=== PATIENT | female | born 1980 | race Caucasian/White ===

== ENCOUNTER 2017-03-18 17:12 | Inpatient (IN) | payer OTHER ==
[2017-03-18] MEDS ORDERED: ONDANSETRON 4 MG/2 ML VIAL IVP ONE (17:47)
[2017-03-18] MEDS ORDERED: NS 1,000 ML IV ONE ×2 (17:47→19:30)
--- NOTE | 2017-03-18 17:52 | EDPHY ---
H & P Stated Complaint: r sided abd pain n/v no stool in a few days Time Seen by Provider: 03/18/17 17:27 HPI/ROS: CHIEF COMPLAINT: Abdominal pain HISTORY OF PRESENT ILLNESS: Patient is a 37-year-old female who comes to the emergency department her dad complaining of diffuse abdominal pain as well as distension. She states she has not had a bowel movement in 2 days has not had any flatus in 24 hours. She has a history of 2 C sections. No other operative history. She has not had a fever. She did vomit once. She does have some right-sided pain as well but no back pain. REVIEW OF SYSTEMS: Constitutional: denies: chills, fever, recent illness, recent injury EENTM: denies: blurred vision, double vision, nose congestion Respiratory: denies: cough, shortness of breath Cardiac: denies: chest pain, irregular heart rate, lightheadedness, palpitations Gastrointestinal/Abdominal: See HPI Genitourinary: denies: dysuria, frequency, hematuria, pain Musculoskeletal: denies: joint pain, muscle pain Skin: denies: lesions, rash, jaundice, bruising Neurological: denies: headache, numbness, paresthesia, tingling, dizziness, weakness Hematologic/Lymphatic: denies: blood clots, easy bleeding, easy bruising Immunologic/allergic: denies: HIV/AIDS, transplant EXAM: GENERAL: Well-appearing, well-nourished and in no acute distress. HEAD: Atraumatic, normocephalic. EYES: Pupils equal round and reactive to light, extraocular movements intact, sclera anicteric, conjunctiva are normal. ENT: TMs normal, nares patent, oropharynx clear without exudates. Moist mucous membranes. NECK: Normal range of motion, supple without lymphadenopathy or JVD. LUNGS: Breath sounds clear to auscultation bilaterally and equal. No wheezes rales or rhonchi. HEART: Regular rate and rhythm without murmurs, rubs or gallops. ABDOMEN: Diffuse pain, no tenderness, distended BACK: No CVA tenderness, no spinal tenderness, step-offs or deformities EXTREMITIES: Normal range of motion, no pitting or edema. No clubbing or cyanosis. NEUROLOGICAL: Cranial nerves II through XII grossly intact. Normal speech, normal gait. 5/5 strength, normal movement in all extremities, normal sensation PSYCH: Normal mood, normal affect. SKIN: Warm, dry, normal turgor, no visible rashes or lesions. Source: Patient Exam Limitations: No limitations - Personal History LMP (Females 10-55): Now Current Tetanus/Diphtheria Vaccine: Yes - Medical/Surgical History Hx Asthma: No Hx Chronic Respiratory Disease: No Hx Diabetes: No Hx Cardiac Disease: No Hx Renal Disease: No Hx Cirrhosis: No Hx Alcoholism: No Hx HIV/AIDS: No Hx Splenectomy or Spleen Trauma: No Other PMH: denies - Family History Significant Family History: No pertinent family hx - Social History Smoking Status: Never smoked Alcohol Use: Heavy Drug Use: None Constitutional: Initial Vital Signs Temperature (C) 36.9 C 03/18/17 17:19 Heart Rate 114 H 03/18/17 17:19 Respiratory Rate 20 03/18/17 17:19 Blood Pressure 131/95 H 03/18/17 17:19 O2 Sat (%) 94 03/18/17 17:19 O2 Delivery Mode Room Air Allergies/Adverse Reactions: latex [Latex] Allergy (Verified 03/18/17 17:19) Penicillins Allergy (Verified 03/18/17 17:19) Home Medications: Medication Instructions Recorded NK [No Known Home Meds] 03/18/17 Medical Decision Making - Diagnostics EKG Interpretation: An EKG obtained and was read and documented in trace view. Please see trace view for full reading and report. Sinus tachycardia, no acute ischemic changes , nonspecific T-wave abnormality Imaging Results: Imaging Impressions Abdomen CT 03/18/17 17:50 Impression: 1. Peripancreatic stranding and fluid consistent with pancreatitis without visible pseudocyst or necrosis. 2. Enlarged fatty liver. 3. Gallbladder distention. 4. Diverticulosis 5. Additional findings as above. Findings discussed with Cali Berman on 03/18/2017 at 1904 hours. Procedures: On bedside ultrasound the patient's gallbladder was easily visualized. No wall thickening or visible stones. The exam was limited by common bile duct is not being completely visualized. ED Course/Re-evaluation: 7:20 p[address]. we discussed the CT results. Patient agrees to admission. She declines further pain or nausea medication at this point. She is anxious and tachycardic after receiving the news. She is also having mild withdrawal. She states that she has never had pancreatitis before. She does drink daily and had a lot to drink yesterday at a family constitution party. Will admit to the hospital service. Differential Diagnosis: Partial list of the Differential diagnosis considered include but were not limited to; pancreatitis, bowel obstruction, biliary disease, hepatitis and although unlikely based on the history and physical exam, I also considered , appendicitis, volvulus, acute coronary disease. Critical Care Time: Critical care time spent by me, Dr. Berman exclusive with this patient was 35 minutes, exclusive of the PA time exclusive of procedures. The organ system that was at risk was GI and I gave IV fluids, pain medication consultation and admission to prevent worsening of the patient's condition - Data Points Laboratory Results: Laboratory Results 03/18/17 17:30 03/18/17 17:30 03/18/17 17:30 Phosphorus 2.8 mg/dL mg/dL (2.5-4.5) Medications Given: Discontinued Medications Chlordiazepoxide HCl (Librium) 50 mg PO ONCE ONE Stop: 03/18/17 20:46 Last Admin: 03/18/17 20:45 Dose: 50 mg Hydromorphone HCl (Dilaudid) 1 mg IVP EDNOW ONE Stop: 03/18/17 17:48 Last Admin: 03/18/17 18:42 Dose: 1 mg Hydromorphone HCl (Dilaudid) 0.2 - 0.4 mg IVP Q2HRS PRN PRN Reason: Pain, Severe Unable to Take PO Stop: 03/28/17 19:37 Last Admin: 03/18/17 23:32 Dose: 0.4 mg Sodium Chloride (Ns) 1,000 mls @ 0 mls/hr IV ONCE ONE PRN Reason: Wide Open Stop: 03/18/17 17:48 Last Admin: 03/18/17 18:11 Dose: 1,000 mls Sodium Chloride (Ns) 1,000 mls @ 0 mls/hr IV ONCE ONE PRN Reason: Wide Open Stop: 03/18/17 19:31 Last Admin: 03/18/17 19:30 Dose: 1,000 mls Magnesium Sulfate (Magnesium Sulf 2 Gm (Premix)) 50 mls @ 50 mls/hr IV ONCE ONE Stop: 03/19/17 07:12 Last Admin: 03/19/17 06:37 Dose: 50 mls Lorazepam (Ativan Injection) 2 mg IVP ONCE ONE Stop: 03/18/17 19:41 Last Admin: 03/18/17 20:09 Dose: 2 mg Ondansetron HCl (Zofran) 4 mg IVP EDNOW ONE Stop: 03/18/17 17:48 Last Admin: 03/18/17 18:10 Dose: 4 mg Departure - Departure Disposition: [facility] Acute Clinical Impression: Pancreatitis Qualifiers: Chronicity: acute Pancreatitis type: alcohol induced Acute pancreatitis complication: unspecified Qualified Code(s): K85.20 - Alcohol induced acute pancreatitis without necrosis or infection Condition: Fair
[2017-03-18 18:08] LABS: % IMMATURE GRANULYOCYTES 0.4 % (0.0-1.1); ABSOLUTE IMMATURE GRANULOCYTES 0.05 10^3/uL (0.00-0.10); ADD DIFF? NO; ADD MORPH? NO; ADD SCAN? NO; ATYPICAL LYMPHOCYTE FLAG 0 (0-99); FRAGMENT RBC FLAG 0 (0-99); HEMATOCRIT 48.3 % (38.0-47.0); HEMOGLOBIN 17.2 g/dL (12.6-16.3); LEFT SHIFT FLG 0 (0-99); LIPEMIA HEMOLYSIS FLAG 90 (0-99); MEAN CELL HEMOGLOBIN 38.1 pg (27.9-34.1); MEAN CELL HEMOGLOBIN CONCENTR. 35.6 g/dL (32.4-36.7); MEAN CELL VOLUME 107.1 fL (81.5-99.8); MEAN PLATELET VOLUME 9.2 fL (8.7-11.7); PLATELET CLUMPS FLAG 0 (0-99); PLATELET COUNT 140 10^3/uL (150-400); RED BLOOD CELL COUNT 4.51 10^6/uL (4.18-5.33); RED CELL DISTRIBUTION WIDTH 12.3 % (11.5-15.2)
[2017-03-18] MEDS: HYDROmorphONE/DILAUDID 1 MG/ML SYR IVP ONE ×2 (18:14→18:42)
[2017-03-18] MEDS ORDERED: HYDROmorphONE/DILAUDID 1 MG/ML SYR ONE (18:17)
[2017-03-18] MEDS ORDERED: IOPAMIDOL (ISOVUE-300) 100 ML BTL ONE (18:19)
[2017-03-18 18:20] LABS: ALANINE AMINOTRANSFERASE 67 IU/L (9-52); ALBUMIN 4.8 g/dL (3.5-5.0); ALKALINE PHOSPHATASE 125 IU/L (38-126); ANION GAP 18 mEq/L (8-16); ASPARTATE AMINOTRANSFERASE 203 IU/L (14-46); BILIRUBIN-CONJUGATED 0.8 mg/dL (0.0-0.5); BILIRUBIN-UNCONJUGATED 1.2 mg/dL (0.0-1.1); CALCIUM 7.9 mg/dL (8.5-10.4); CARBON DIOXIDE 16 mEq/l (22-31); CHLORIDE 106 mEq/L (97-110); CREATININE 0.5 mg/dL (0.6-1.0); GLOMERULAR FILTRATION RATE > 60; GLUCOSE 129 mg/dL (70-100); POTASSIUM 3.7 mEq/L (3.5-5.2); SODIUM 140 mEq/L (134-144); TOTAL PROTEIN 8.1 g/dL (6.3-8.2)
--- NOTE | 2017-03-18 18:38 | CPEKG ---
Heart Rate: 106 RR Interval: 566 P-R Interval: 156 QRSD Interval: 96 QT Interval: 364 QTC Interval: 484 P Aurora: 58 QRS Aurora: -11 T Wave Aurora: 49 EKG Severity - BORDERLINE ECG - EKG Impression: SINUS TACHYCARDIA EKG Impression: PROBABLE LEFT ATRIAL ABNORMALITY EKG Impression: BORDERLINE T ABNORMALITIES, ANT-LAT LEADS Electronically Signed By: Cali Berman 18-Mar-2017 18:42:20
[2017-03-18] MEDS ORDERED: ACETAMINOPHEN 650 MG SUPP PR PRN (19:38)
[2017-03-18] MEDS ORDERED: ONDANSETRON 4 MG/2 ML VIAL IVP PRN (19:38)
[2017-03-18] MEDS ORDERED: LORazepam 2 MG/ML INJ IVP ONE (19:40)
[2017-03-18] MEDS ORDERED: NS 1,000 ML IV SCH (19:45)
[2017-03-18] MEDS ORDERED: chlordiazePOXIDE 25 MG CAP ONE (20:42)
[2017-03-18] MEDS ORDERED: chlordiazePOXIDE 25 MG CAP PO ONE (20:45)
[2017-03-18] MEDS: HYDROmorphONE/DILAUDID 1 MG/ML SYR IVP PRN ×2 (21:31→23:32)
[2017-03-18] MEDS: THIAMINE HCL 500 MG in NS 100 ML IV SCH (21:35)
--- NOTE | 2017-03-18 21:52 | GHP ---
[f rep st] HISTORY AND PHYSICAL DATE OF ADMISSION: 03/18/2017 CHIEF COMPLAINT: Abdominal pain. HISTORY OF PRESENT ILLNESS: A 37-year-old female who presents with severe epigastric abdominal pain that she describes as beginning approximately 24 hours prior to presentation. Reports that it loca lizes above her umbilicus, and then radiates to her right upper quadrant. She intermittently had th e pain, and then it became so severe that she presented to the emergency department. She had associ ated nausea with 1 episode of emesis that she describes as nonbloody. Denies any coffee-grounds. D enies any preceding history of abdominal discomfort like this. Denies any shortness of breath. Den ies chest pain, headache, vision changes, dysphagia, myalgias, arthralgias, or rashes. Patient repo rts very heavy consistent alcohol use for the past 6-7 years. She cannot recall a day she was away from alcohol. Reports tremors that begin in the morning and get progressively worse through the cou rse of the day. If she does not have any child related activities, will begin drinking approximatel y 3 in the afternoon. If she does, then she will drink after, but drinks consistently 3-4 drinks wi th 3-4 shots of alcohol in each of them a night. PAST MEDICAL HISTORY: Alcohol abuse. Patient reports drinking consistently 7-10 ounces of alcohol at night. SOCIAL HISTORY: Alcohol use as above. Denies tobacco, illicit drugs, or marijuana. FAMILY HISTORY: Positive for alcoholism in her father and several other family members. The patien t has 2 children who are 10 and 12. 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 REVIEW OF SYSTEMS: A 10-point review of systems is negative with the exception of that reported in the HPI. PHYSICAL EXAMINATION: VITAL SIGNS: Blood pressure 131/95, heart rate 135, respiratory rate 18, sat urating 94% on room air, 36.9. GENERAL: This is a young appearing female in mild distress. HEENT: Notable for dry mucous membranes. Eye exam is negative for any icterus. CARDIAC: Patient is tac hycardic, but regular. PULMONARY: She is clear to auscultation bilaterally. GASTROINTESTINAL: Po sitive bowel sounds. Abdomen is obese, but soft. She is tender to palpation in the epigastrium and right upper quadrants with voluntary guarding. No rebound. MUSCULOSKELETAL: Negative for any low er extremity edema. SKIN: Negative for any rashes. NEUROLOGIC: The patient is tremulous on my ex am, has tongue fasciculations, is alert and oriented x3. PSYCHIATRIC: She is pleasant and fearful on my examination. LABORATORY DATA: White count is 14, hematocrit 48.3, platelet count of 140, creatinine 0.5, anion g ap of 18, bicarb of 16, AST 203, ALT 67, total bilirubin of 2, lipase of 6625, beta HCG negative. C T of the abdomen, which I personally reviewed and interpreted shows an enlarged fatty liver, peripan creatic stranding, gallbladder distention. ASSESSMENT AND PLAN: This is a 37-year-old female presenting with abdominal pain. 1. Acute pancreatitis suspect alcohol related. Will rule out cholelithiasis with ultrasound tomorr ow. Will admit, make n.p.o., treat with IV fluids and IV pain medications. Patient has an elevated white count at presentation. Will need to monitor closely. 2. Acute alcohol withdrawal. Patient is tremulous, tachycardic, has tongue fasciculations and has extensive daily alcohol intake. I believe she has already begun withdrawing from alcohol. Will maurice at with Librium now and scheduled t.i.d., as well as CIWA protocol with IV Ativan. Will admit the p atient to the stepdown unit as her risk for developing severe alcohol withdrawal is high. 3. Alcohol abuse. The patient has expressed interest in alcohol cessation. After this hospitaliza tion can ask Case Management to loop into the conversation when she is medically more stable. Will add a phosphorus to her admission labs as her risk for hypophosphatemia is high. Will add IV vitami ns to her treatment regimen. 4. Metabolic acidosis. I suspect this is likely starvation ketosis with alcohol abuse and poor p.o . intake with her pancreatitis. Will aggressively fluid resuscitate and recheck in the morning. 5. Leukocytosis. Suspect this may be either a stress response or secondary to her pancreatitis. W ill follow closely. 6. Alcohol related hepatitis. Will add Coag's for calculation of discriminant function in the morn ing, although I suspect she will not qualify for steroid treatment. 7. Prophylaxis with Lovenox. 8. Diet n.p.o. 9. Disposition. Expecting greater than 2 midnights as the patient is presenting with acute alcohol withdrawal and pancreatitis requiring close monitoring and care. She is high risk for deterioratio n. I have discussed the case with the emergency room physician. Patient will be triaged to the [facility] pdown unit, as we suspect she will likely need Precedex if her withdrawal worsens. /[id number]/MODL
[2017-03-18] MEDS: chlordiazePOXIDE 25 MG CAP PO SCH (22:13)
[2017-03-19] MEDS: LORazepam 2 MG/ML INJ IVP PRN ×6 (00:23→22:37)
[2017-03-19] MEDS ORDERED: NALOXONE HCL 0.4 MG/ML INJ IVP PRN (00:25)
[2017-03-19 00:42] LABS: COLOR YELLOW; LEUKOCYTE ESTERASE,URINE NEGATIVE (NEGATIVE); MUCUS TRACE /lpf (NONE-1+); NITRITE,URINE NEGATIVE (NEGATIVE)
[2017-03-19] MEDS: HYDROmorphONE/DILAUDID 6 MG/30 ML PCA IV PRN ×2 (00:53→19:19)
[2017-03-19 05:10] LABS: % IMMATURE GRANULYOCYTES 0.4 % (0.0-1.1); ABSOLUTE IMMATURE GRANULOCYTES 0.04 10^3/uL (0.00-0.10); ADD DIFF? NO; ADD MORPH? NO; ADD SCAN? NO; ATYPICAL LYMPHOCYTE FLAG 10 (0-99); FRAGMENT RBC FLAG 0 (0-99); HEMATOCRIT 43.6 % (38.0-47.0); HEMOGLOBIN 15.2 g/dL (12.6-16.3); LEFT SHIFT FLG 0 (0-99); LIPEMIA HEMOLYSIS FLAG 90 (0-99); MEAN CELL HEMOGLOBIN CONCENTR. 34.9 g/dL (32.4-36.7); MEAN PLATELET VOLUME 9.3 fL (8.7-11.7); PLATELET CLUMPS FLAG 0 (0-99); PLATELET COUNT 86 10^3/uL (150-400); RED CELL DISTRIBUTION WIDTH 12.3 % (11.5-15.2)
[2017-03-19 05:23] LABS: ANION GAP 10 mEq/L (8-16); CARBON DIOXIDE 19 mEq/l (22-31); CHLORIDE 112 mEq/L (97-110); CREATININE 0.5 mg/dL (0.6-1.0); GLOMERULAR FILTRATION RATE > 60; GLUCOSE 98 mg/dL (70-100); MAGNESIUM 1.1 mg/dL (1.6-2.3); POTASSIUM 3.7 mEq/L (3.5-5.2); SODIUM 141 mEq/L (134-144)
[2017-03-19 05:41] LABS: CALCIUM 5.8 mg/dL (8.5-10.4)
[2017-03-19] MEDS ORDERED: PROTOCOL MAGNESIUM 1 DOSE IV PRN (06:00)
[2017-03-19] MEDS ORDERED: PROTOCOL CALCIUM 1 DOSE IV PRN ×2 (06:00→06:02)
[2017-03-19] MEDS ORDERED: MAGNESIUM SULF 2 GM/WATER 50 ML IV ONE (06:13)
[2017-03-19] MEDS: chlordiazePOXIDE 25 MG CAP PO SCH ×3 (08:03→21:26)
[2017-03-19] MEDS: THIAMINE HCL 500 MG in NS 100 ML IV SCH (08:03)
[2017-03-19] MEDS ORDERED: CALCIUM GLUCONATE 2 GM in NS 50 ML IV ONE (08:47)
[2017-03-19] MEDS: ENOXAPARIN 40 MG/0.4 ML SYR SC SCH (10:20)
[2017-03-19] MEDS: FAMOTIDINE 20 MG/NACL 50 ML IV SCH ×2 (10:59→21:26)
[2017-03-19] MEDS: D5W 1/2 NS W/ 20 KCl/L 1,000 ML IV SCH ×2 (11:01→20:07)
[2017-03-19] MEDS ORDERED: IOTHALAMATE MEG (CONRAY) 50 ML VIAL IV ONE (12:12)
[2017-03-19] MEDS ORDERED: GLUCAGON,HUMAN RECOMBINANT 1 MG VIAL ONE (12:12)
[2017-03-19] MEDS ORDERED: PROPOFOL 200 MG/20 ML VIAL ONE (13:18)
[2017-03-19] MEDS ORDERED: ROCURONIUM 50 MG/5 ML VIAL ONE (13:18)
[2017-03-19] MEDS ORDERED: LIDOCAINE 2% 5 ML SDV ONE (13:18)
[2017-03-19] MEDS ORDERED: fentaNYL 100 MCG/2 ML INJ ONE (13:18)
[2017-03-19] MEDS ORDERED: MIDAZOLAM 2 MG/2 ML VIAL ONE (13:20)
[2017-03-19] MEDS ORDERED: DEXAMETHASONE 4 MG/ML VIAL ONE (13:43)
[2017-03-19] MEDS ORDERED: SUGAMMADEX SODIUM 200 MG/2 ML VIAL IVP ONE (13:48)
--- NOTE | 2017-03-19 14:05 | SOAPPROG ---
[facility] Progress Note Assessment/Plan: Assessment:ERCP with sphincterotomy performed for suspected choledocholithiasis and dilated CBD along wit pancreatitis. CBD was ~8mm, no debris or filling defects seen. Plan:Unclear why such discordance between imaging and my procedure. Would treat as alcoholic pancreatitis. 03/19/17 14:03 Objective: Vital Signs Temp Pulse Resp BP Pulse Ox 37.0 C 112 H 25 H 120/74 95 03/19/17 11:37 03/19/17 11:37 03/19/17 11:37 03/19/17 11:37 03/19/17 11:37 Laboratory Results 03/19/17 04:55 03/19/17 04:55 03/18/17 03/19/17 03/20/17 05:59 05:59 05:59 Intake Total 2960 Output Total 600 Balance 2360 ICD10 Worksheet Patient Problems: Problems Problem Status Onset Pancreatitis Acute
--- NOTE | 2017-03-19 14:49 | GPN ---
[f rep st] PROCEDURE NOTE PROCEDURE PERFORMED: ERCP with sphincterotomy. INDICATION: The patient is a 37-year-old female who was admitted with pancreatitis, felt most likel y due to alcohol abuse. However, imaging revealed a common bile duct of 22 mm and possible choledoc holithiasis. Of note, no gallstones were seen in the gallbladder. ERCP was requested to clear the common bile duct, as she may have gallstone pancreatitis. PROCEDURE: After proper consent was obtained, patient placed in the swimmer's position, put under g eneral anesthesia. Video duodenoscope was introduced through the mouth, down the esophagus, through the stomach, past the pylorus, into the duodenum. These structures were grossly normal. Ampulla of Vater was identified, appeared atraumatic. Using guidewire technique, I was able to cannulate the common bile duct and then opacify it. The du ct was dilated, but only to 9 mm. No obvious filling defects were noted. A small sphincterotomy, approximately 10 mm, was performed. Using Seldinger technique, I switched over to a 9-12 mm balloon extractor and performed multiple swe eps of the common duct with no evidence of any debris removed. Final cholangiogram showed no filling defects. At this point, instrument was removed. Patient tolerated procedure well and was returned to recover y room in stable condition. IMPRESSION: 1. No evidence for choledocholithiasis. While the common bile duct is dilated, it is not as much a s what was seen on the ultrasound. It is unclear why this discordance exists. The ultrasound was d one only 7 hours prior and there was no evidence that she passed a stone, as far as the ampulla look ing atraumatic. 2. Alcoholic pancreatitis. RECOMMENDATIONS: The patient will be treated for pancreatitis, as per the hospitalist team. I will be available should there be any other followup required. /[id number]/MODL
[2017-03-19 15:48] LABS: % IMMATURE GRANULYOCYTES 0.8 % (0.0-1.1); ADD DIFF? NO; ADD MORPH? NO; ADD SCAN? NO; ATYPICAL LYMPHOCYTE FLAG 0 (0-99); FRAGMENT RBC FLAG 0 (0-99); HEMATOCRIT 48.4 % (38.0-47.0); HEMOGLOBIN 16.9 g/dL (12.6-16.3); LEFT SHIFT FLG 90 (0-99); LIPEMIA HEMOLYSIS FLAG 90 (0-99); MEAN CELL HEMOGLOBIN 38.4 pg (27.9-34.1); MEAN CELL HEMOGLOBIN CONCENTR. 34.9 g/dL (32.4-36.7); MEAN PLATELET VOLUME 9.4 fL (8.7-11.7); PLATELET CLUMPS FLAG 0 (0-99); PLATELET COUNT 91 10^3/uL (150-400); RED CELL DISTRIBUTION WIDTH 12.6 % (11.5-15.2)
[2017-03-19 16:14] LABS: ALANINE AMINOTRANSFERASE 42 IU/L (9-52); ALBUMIN 3.7 g/dL (3.5-5.0); ALKALINE PHOSPHATASE 86 IU/L (38-126); ANION GAP 9 mEq/L (8-16); ASPARTATE AMINOTRANSFERASE 103 IU/L (14-46); BILIRUBIN,TOTAL 3.8 mg/dL (0.1-1.4); CALCIUM 6.1 mg/dL (8.5-10.4); CARBON DIOXIDE 21 mEq/l (22-31); CHLORIDE 109 mEq/L (97-110); CREATININE 0.6 mg/dL (0.6-1.0); GLOMERULAR FILTRATION RATE > 60; GLUCOSE 144 mg/dL (70-100); POTASSIUM 3.7 mEq/L (3.5-5.2); SODIUM 139 mEq/L (134-144); TOTAL PROTEIN 6.3 g/dL (6.3-8.2)
--- NOTE | 2017-03-19 16:34 | GPROG ---
[f rep st] PROGRESS NOTE SUBJECTIVE: Patient continues to experience some abdominal pain, but her primary symptom at the pre sent time is tremulousness. OBJECTIVE: VITAL SIGNS: Systolic blood pressure 110 to 130, heart rate 100 to 120, respiratory rat e 25, saturating well on 2 L nasal cannula, afebrile overnight, net positive 2 L. GENERAL: Alert, awake, oriented x3. No apparent distress. Patient is visibly tremulous. She is visibly uncomforta ble. NEURO: No asterixis. Positive bilateral upper extremity tremulousness. Facial symmetry. Mo tor strength 5/5 bilateral upper and lower extremities. GASTROINTESTINAL: Bowel sounds are present . Abdomen is soft, moderately tender to moderate depth palpation in the midepigastric area as well as the right upper quadrant. No guarding. No masses were able to be detected. CARDIAC: Tachycard ic, regular rhythm, no murmurs, rubs, or gallops appreciated, no lower extremity edema. RESPIRATORY : Clear to auscultation bilaterally. No crackles. No wheezes. No bronchial breath sounds. No ar eas of reduced air movement. DATA: Total bilirubin 2, AST 200, ALT 70, alkaline phosphatase 130. White blood cell count 10,700. Creatinine 0.5, ionized calcium 0.8, magnesium 1.1, lipase level 6600. Ultrasound demonstrating choledocholithiasis, dilated common bile duct, pericholecystic fluid, no hy dronephrosis, hepatic steatosis. ASSESSMENT: 37-year-old female presents with acute alcohol-induced pancreatitis complicated by acut e alcohol withdrawal. PLAN: 1. Pancreatitis. Acute, alcohol-induced, new problem this provider, further workup indicated. Giv en common bile duct dilatation on ultrasound, I discussed the patient's presentation with Dr. Casey Cordero, and we decided to undergo an ERCP to evaluate for potential concomitant gallstone induced panc reatitis. The patient tolerated the procedure well. Dr. Fishman reported to me that the patient did not have a dilated common bile duct and did not have any evidence of stone fragments. We concluded that the most likely cause of her pancreatitis is overt alcohol induced pancreatitis. She can be a dvanced to a clear liquid diet, continued on IV fluids, notably D5 half-normal saline, and will be t reated with IV pain medications via MARBLE WORKER. 2. Acute alcohol withdrawal. Evidenced by tremulousness, tachycardia, leukocytosis. The patient h as been placed on scheduled Librium as well as needed Ativan. She has not had a seizure in the past . She reports that she has had alcohol withdrawal symptoms, and they have been more severe than wha t she is presently experiencing. We will watch her closely in the step-down unit. 3. Transaminitis secondary to alcohol abuse, potential underlying alcohol-induced hepatitis with st eatosis on ultrasound. Continue to monitor. 4. Systemic inflammatory response syndrome. Evidenced by tachycardia, tachypnea, leukocytosis. No evidence of infection or necrotizing pancreatitis on abdominal CT. Hold antibiotics, continue IV f luids, continue to monitor CBC and vital signs closely. 5. Diet. Clear liquid. 6. Prophylaxis. Will order this patient SCDs. 7. Code: Full. DISPOSITION: Anticipated date of discharge uncertain at this time, anticipating stay greater than 4 8 hours, inpatient admission status indicated for ongoing MARBLE WORKER for pain management. /[id number]/MODL
[2017-03-19 17:28] LABS: BILIRUBIN-CONJUGATED 1.6 mg/dL (0.0-0.5); BILIRUBIN-UNCONJUGATED 2.2 mg/dL (0.0-1.1)
[2017-03-20] MEDS: LORazepam 2 MG/ML INJ IVP PRN ×5 (00:32→21:18)
[2017-03-20] MEDS: D5W 1/2 NS W/ 20 KCl/L 1,000 ML IV SCH ×2 (02:45→21:18)
[2017-03-20 04:52] LABS: IONIZED CALCIUM 0.79 MMOL/L (1.12-1.30)
[2017-03-20] MEDS ORDERED: CALCIUM GLUCONATE 2 GM in NS 50 ML IV ONE (04:59)
[2017-03-20 05:11] LABS: ALANINE AMINOTRANSFERASE 41 IU/L (9-52); ALBUMIN 3.2 g/dL (3.5-5.0); ALKALINE PHOSPHATASE 72 IU/L (38-126); ANION GAP 7 mEq/L (8-16); ASPARTATE AMINOTRANSFERASE 71 IU/L (14-46); BILIRUBIN,TOTAL 4.1 mg/dL (0.1-1.4); CARBON DIOXIDE 20 mEq/l (22-31); CHLORIDE 106 mEq/L (97-110); CREATININE 0.6 mg/dL (0.6-1.0); GLOMERULAR FILTRATION RATE > 60; GLUCOSE 130 mg/dL (70-100); MAGNESIUM 1.7 mg/dL (1.6-2.3); SODIUM 133 mEq/L (134-144); TOTAL PROTEIN 5.9 g/dL (6.3-8.2)
[2017-03-20 05:19] LABS: CALCIUM 5.5 mg/dL (8.5-10.4)
[2017-03-20 05:23] LABS: % IMMATURE GRANULYOCYTES 0.7 % (0.0-1.1); ABSOLUTE IMMATURE GRANULOCYTES 0.07 10^3/uL (0.00-0.10); ADD DIFF? NO; ADD MORPH? NO; ADD SCAN? YES; ATYPICAL LYMPHOCYTE FLAG 0 (0-99); FRAGMENT RBC FLAG 0 (0-99); HEMATOCRIT 45.5 % (38.0-47.0); HEMOGLOBIN 15.4 g/dL (12.6-16.3); LIPEMIA HEMOLYSIS FLAG 90 (0-99); MEAN CELL HEMOGLOBIN 37.7 pg (27.9-34.1); MEAN CELL HEMOGLOBIN CONCENTR. 33.8 g/dL (32.4-36.7); MEAN CELL VOLUME 111.2 fL (81.5-99.8); MEAN PLATELET VOLUME 10.1 fL (8.7-11.7); PLATELET CLUMPS FLAG 0 (0-99); PLATELET COUNT 84 10^3/uL (150-400); RED BLOOD CELL COUNT 4.09 10^6/uL (4.18-5.33); RED CELL DISTRIBUTION WIDTH 12.7 % (11.5-15.2)
[2017-03-20 05:26] LABS: BILIRUBIN-CONJUGATED 1.4 mg/dL (0.0-0.5); BILIRUBIN-UNCONJUGATED 2.7 mg/dL (0.0-1.1); LEFT SHIFT FLG 200 (0-99)
[2017-03-20] MEDS ORDERED: MAGNESIUM SULF 1 GM/DEXTROSE 100 ML IV ONE (05:29)
[2017-03-20 05:51] LABS: SCAN NEGATIVE
[2017-03-20] MEDS: FAMOTIDINE 20 MG/NACL 50 ML IV SCH ×2 (08:15→21:18)
[2017-03-20] MEDS: chlordiazePOXIDE 25 MG CAP PO SCH ×3 (08:15→21:18)
[2017-03-20] MEDS ORDERED: K PHOS 15 MMOL in D5W 250 ML IV ONE (08:31)
[2017-03-20] MEDS: ENOXAPARIN 40 MG/0.4 ML SYR SC SCH (08:49)
[2017-03-20] MEDS ORDERED: HYDROmorphONE/DILAUDID 1 MG/ML SYR IVP PRN (10:12)
[2017-03-20] MEDS: HYDROmorphONE/DILAUDID 2 MG TAB PO PRN (10:46)
[2017-03-20] MEDS ORDERED: ACETAMINOPHEN 325 MG TAB PO PRN (17:23)
--- NOTE | 2017-03-20 21:50 | HOSPPROG ---
Hospitalist Progress Note Assessment/Plan: Assessment: 37 yo F p/w acute alcohol induced pancreatitis c/b acute alcohol withdraw, SIRS Plan: 1. Pancreatitis. Acute, alcohol induced, no stones/debris/dilation noted on ERCP - recommend outpt f/u Dr. Fishman to re-eval for stones in future - cont clear liq, adv to low fat tonight if hungry - adjust from STILL OPERATOR to PRN dilaudid - cont D5 1/2 NS 2. Alcohol withdraw. Remains tachy and tremulous, cont schedule librium and PRN ativan - adjust to PRN librium in AM if improving 3. SIRS. 2/2 above, cont IVF/pain/alcohol wd mgmt 4. Transaminitis. 2/2 alcohol abuse 5. Thrombocytopenia. 2/2 alcohol abuse Diet. Clear PPx. High risk, lovenox 40 Code. Full Dispo. ADD uncertain, ongoing EtOH w/d Subjective: ongoing pain, tremulousness Objective: Vital Signs Temp Pulse Resp BP Pulse Ox 37.3 C 116 H 16 111/70 95 03/20/17 19:16 03/20/17 19:16 03/20/17 19:16 03/20/17 19:16 03/20/17 19:16 Laboratory Results 03/20/17 04:24 03/20/17 04:24 03/19/17 03/20/17 03/21/17 05:59 05:59 05:59 Intake Total 2960 3414 147 Output Total 600 Balance 2360 3414 147 - Physical Exam Constitutional: no apparent distress, appears nourished, uncomfortable, No chronically ill appearing Cardiovascular: tachycardia, No systolic murmur, No irregularly irregular, No edema Respiratory: no respiratory distress, no rales or rhonchi, clear to auscultation Gastrointestinal: tenderness (mid epigastric area), No normoactive bowel sounds (hypoactive bowel sounds), No guarding, No distension Neurologic: AAOx3, sensation intact bilaterally, No weakness, No asterixes ( tremulousness) Psychiatric: not encephalopathic, thought process linear, anxious, No agitated ICD10 Worksheet Patient Problems: Problems Problem Status Onset Pancreatitis Acute
[2017-03-21 05:41] LABS: IONIZED CALCIUM 0.83 MMOL/L (1.12-1.30)
[2017-03-21] MEDS: HYDROmorphONE/DILAUDID 2 MG TAB PO PRN ×3 (05:41→18:44)
[2017-03-21 05:45] LABS: ADD MORPH? NO; ADD SCAN? YES; ATYPICAL LYMPHOCYTE FLAG 0 (0-99); FRAGMENT RBC FLAG 0 (0-99); HEMATOCRIT 37.2 % (38.0-47.0); HEMOGLOBIN 12.6 g/dL (12.6-16.3); LIPEMIA HEMOLYSIS FLAG 90 (0-99); MEAN CELL HEMOGLOBIN 38.1 pg (27.9-34.1); MEAN CELL HEMOGLOBIN CONCENTR. 33.9 g/dL (32.4-36.7); MEAN CELL VOLUME 112.4 fL (81.5-99.8); MEAN PLATELET VOLUME 9.6 fL (8.7-11.7); PLATELET CLUMPS FLAG 0 (0-99); PLATELET COUNT 81 10^3/uL (150-400); RED BLOOD CELL COUNT 3.31 10^6/uL (4.18-5.33); RED CELL DISTRIBUTION WIDTH 12.8 % (11.5-15.2)
[2017-03-21 05:46] LABS: LEFT SHIFT FLG 190 (0-99)
[2017-03-21 06:34] LABS: ALANINE AMINOTRANSFERASE 33 IU/L (9-52); ALBUMIN 2.8 g/dL (3.5-5.0); ALKALINE PHOSPHATASE 65 IU/L (38-126); ANION GAP 8 mEq/L (8-16); ASPARTATE AMINOTRANSFERASE 53 IU/L (14-46); BILIRUBIN,TOTAL 3.7 mg/dL (0.1-1.4); CARBON DIOXIDE 21 mEq/l (22-31); CHLORIDE 106 mEq/L (97-110); CREATININE 0.5 mg/dL (0.6-1.0); GLOMERULAR FILTRATION RATE > 60; GLUCOSE 98 mg/dL (70-100); POTASSIUM 3.2 mEq/L (3.5-5.2); SODIUM 135 mEq/L (134-144); TOTAL PROTEIN 5.2 g/dL (6.3-8.2)
[2017-03-21 06:48] LABS: ADD DIFF? YES; SCAN POSITIVE
[2017-03-21 06:53] LABS: MACROCYTES 1+; PLATELET ESTIMATE DECREASED (ADEQ)
[2017-03-21 06:57] LABS: CALCIUM 5.4 mg/dL (8.5-10.4)
[2017-03-21 06:59] LABS: TOXIC VACUOLIZATION PRESENT
[2017-03-21] MEDS ORDERED: CALCIUM GLUCONATE 2 GM in NS 50 ML IV ONE (07:06)
[2017-03-21 07:22] LABS: BILIRUBIN-CONJUGATED 1.8 mg/dL (0.0-0.5); BILIRUBIN-UNCONJUGATED 1.9 mg/dL (0.0-1.1)
[2017-03-21] MEDS: chlordiazePOXIDE 25 MG CAP PO SCH ×3 (08:01→20:39)
[2017-03-21] MEDS: ENOXAPARIN 40 MG/0.4 ML SYR SC SCH ×2 (08:01→08:09)
[2017-03-21] MEDS: FAMOTIDINE 20 MG/NACL 50 ML IV SCH ×2 (09:31→20:39)
[2017-03-21] MEDS: POTASSIUM Cl (KCl) 100 ML IV SCH ×2 (10:02→13:35)
[2017-03-21] MEDS: D5W 1/2 NS W/ 40 KCl/L 1,000 ML IV SCH (13:37)
[2017-03-21] MEDS: LORazepam 2 MG/ML INJ IVP PRN ×2 (14:34→20:39)
--- NOTE | 2017-03-21 22:12 | HOSPPROG ---
Hospitalist Progress Note Assessment/Plan: Assessment: 37 yo F p/w acute alcohol induced pancreatitis c/b acute alcohol withdraw, SIRS Plan: 1. Pancreatitis. Acute, alcohol induced, no stones/debris/dilation noted on ERCP - recommend outpt f/u Dr. Fishman to re-eval for stones in future - attempt adv diet to low fat today - adjusted from FOOD AND BEVERAGE LEAD to PRN dilaudid - cont D5 1/2 NS w/ K, reduce rate to avoid overload 2. Alcohol withdraw. Remains tachy and tremulous, cont schedule librium and PRN ativan - adjust to PRN librium in AM if improving - ongoing withdraw, not clinically safe for DC - patient and counseled on cessation, plans are for outpt rehab 3. SIRS. 2/2 above, cont IVF/pain/alcohol wd mgmt, no indication for tele 4. Transaminitis. 2/2 alcohol abuse 5. Thrombocytopenia. 2/2 alcohol abuse 6. Hypocalcemia. Severe, 2/2 pancreatitis, cont IV replacement Diet. Clear to low fat PPx. High risk, lovenox 40 Code. Full Dispo. ADD 03/24, ongoing EtOH w/d Subjective: counseled patient/ regarding safe discharge criteria for pancreatitis/withdraw, discussed outpt alcohol cessation Objective: Vital Signs Temp Pulse Resp BP Pulse Ox 37.5 C 120 H 18 118/80 92 03/21/17 20:00 03/21/17 20:00 03/21/17 20:00 03/21/17 20:00 03/21/17 20:00 Laboratory Results 03/21/17 05:35 03/21/17 05:35 03/20/17 03/21/17 03/22/17 05:59 05:59 05:59 Intake Total 3414 1268 800 Balance 3414 1268 800 - Time Spent With Patient Time Spent with Patient: greater than 35 minutes Time Spent with Patient: Greater than 35 minutes spent on this patients care, greater than 50% of time spent counseling, educating, and coordinating care regarding the above mentioned plan. - Pending Discharge Pending Discharge Within 48 Hours: Yes Pending Discharge Date: 03/23/17 Pending Discharge Time: 11:00 - Physical Exam Constitutional: not in pain (mild pain), uncomfortable Cardiovascular: irregularly irregular, tachycardia, edema (trace bilat LE) Respiratory: inspiratory crackles (bilat bases), bronchial breath sounds, No expiratory wheeze Gastrointestinal: tenderness (RLQ), guarding, distension, No normoactive bowel sounds (hypoactive bowel sounds) Neurologic: AAOx3, No asterixes (but tremulous) Psychiatric: anxious ICD10 Worksheet Patient Problems: Problems Problem Status Onset Pancreatitis Acute
[2017-03-22] MEDS: LORazepam 2 MG/ML INJ IVP PRN ×4 (02:22→13:22)
[2017-03-22] MEDS: HYDROmorphONE/DILAUDID 2 MG TAB PO PRN ×3 (02:22→23:40)
[2017-03-22 05:22] LABS: IONIZED CALCIUM 0.92 MMOL/L (1.12-1.30)
[2017-03-22 05:50] LABS: ALANINE AMINOTRANSFERASE 36 IU/L (9-52); ALBUMIN 2.8 g/dL (3.5-5.0); ALKALINE PHOSPHATASE 101 IU/L (38-126); ANION GAP 7 mEq/L (8-16); ASPARTATE AMINOTRANSFERASE 64 IU/L (14-46); BILIRUBIN,TOTAL 3.9 mg/dL (0.1-1.4); CALCIUM 6.3 mg/dL (8.5-10.4); CARBON DIOXIDE 21 mEq/l (22-31); CHLORIDE 109 mEq/L (97-110); CREATININE 0.4 mg/dL (0.6-1.0); GLOMERULAR FILTRATION RATE > 60; GLUCOSE 99 mg/dL (70-100); MAGNESIUM 1.9 mg/dL (1.6-2.3); POTASSIUM 3.3 mEq/L (3.5-5.2); SODIUM 137 mEq/L (134-144); TOTAL PROTEIN 5.3 g/dL (6.3-8.2)
[2017-03-22 05:53] LABS: % IMMATURE GRANULYOCYTES 0.6 % (0.0-1.1); ABSOLUTE IMMATURE GRANULOCYTES 0.05 10^3/uL (0.00-0.10); ADD DIFF? NO; ADD MORPH? NO; ADD SCAN? YES; ATYPICAL LYMPHOCYTE FLAG 0 (0-99); FRAGMENT RBC FLAG 0 (0-99); HEMATOCRIT 34.4 % (38.0-47.0); HEMOGLOBIN 11.8 g/dL (12.6-16.3); LIPEMIA HEMOLYSIS FLAG 90 (0-99); MEAN CELL HEMOGLOBIN 37.7 pg (27.9-34.1); MEAN CELL HEMOGLOBIN CONCENTR. 34.3 g/dL (32.4-36.7); MEAN CELL VOLUME 109.9 fL (81.5-99.8); MEAN PLATELET VOLUME 9.5 fL (8.7-11.7); PLATELET CLUMPS FLAG 20 (0-99); PLATELET COUNT 100 10^3/uL (150-400); RED BLOOD CELL COUNT 3.13 10^6/uL (4.18-5.33); RED CELL DISTRIBUTION WIDTH 12.9 % (11.5-15.2)
[2017-03-22 05:55] LABS: LEFT SHIFT FLG 180 (0-99)
[2017-03-22 06:13] LABS: BILIRUBIN-CONJUGATED 2.1 mg/dL (0.0-0.5); BILIRUBIN-UNCONJUGATED 1.8 mg/dL (0.0-1.1)
[2017-03-22 06:35] LABS: SCAN POSITIVE
[2017-03-22 06:40] LABS: PLATELET ESTIMATE DECREASED (ADEQ)
[2017-03-22] MEDS ORDERED: CALCIUM GLUCONATE 50 ML IV ONE (06:48)
[2017-03-22] MEDS: chlordiazePOXIDE 25 MG CAP PO SCH ×3 (08:42→22:19)
[2017-03-22] MEDS: ENOXAPARIN 40 MG/0.4 ML SYR SC SCH (08:42)
[2017-03-22] MEDS: FAMOTIDINE 20 MG/NACL 50 ML IV SCH ×2 (09:21→22:19)
[2017-03-22] MEDS: D5W 1/2 NS W/ 40 KCl/L 1,000 ML IV SCH ×3 (11:13→23:36)
[2017-03-22] MEDS ORDERED: chlordiazePOXIDE 25 MG CAP PO PRN (13:49)
[2017-03-22] MEDS ORDERED: chlordiazePOXIDE 25 MG CAP PO ONE (13:49)
[2017-03-22] MEDS ORDERED: POTASSIUM CL 20 MEQ TAB PO ONE (13:50)
--- NOTE | 2017-03-22 13:54 | HOSPPROG ---
Hospitalist Progress Note Assessment/Plan: 1. Pancreatitis. Acute, alcohol induced, no stones/debris/dilation noted on ERCP - recommend outpt f/u Dr. Fishman to re-eval for stones in future - Tolerating diet . IV fluids 2. Alcohol withdraw. Remains tachy and tremulous * increased scheduled Librium * at p.r.n. Librium rather than Ativan 3. SIRS. 2/2 above, cont IVF/pain/alcohol wd mgmt, no indication for tele 4. Transaminitis. 2/2 alcohol abuse 5. Thrombocytopenia. 2/2 alcohol abuse 6. Hypocalcemia. Severe, 2/2 pancreatitis, cont IV replacement Subjective: Tolerating diet with little pain. Objective: Vital Signs Temp Pulse Resp BP Pulse Ox 38.1 C 122 H 16 121/77 H 92 03/22/17 12:00 03/22/17 12:00 03/22/17 12:00 03/22/17 12:00 03/22/17 12:00 Laboratory Results 03/22/17 05:14 03/22/17 05:14 03/21/17 03/22/17 03/23/17 05:59 05:59 05:59 Intake Total 1268 1800 Balance 1268 1800 - Physical Exam Constitutional: no apparent distress, appears nourished, not in pain Eyes: anicteric sclera, EOMI Ears, Nose, Mouth, Throat: moist mucous membranes, hearing normal, ears appear normal, no oral mucosal ulcers Cardiovascular: tachycardia Respiratory: no respiratory distress, no rales or rhonchi, clear to auscultation Gastrointestinal: normoactive bowel sounds, soft, non-tender abdomen, no palpable masses Skin: warm Neurologic: AAOx3 Psychiatric: interacting appropriately, not encephalopathic, anxious ICD10 Worksheet Patient Problems: Problems Problem Status Onset Pancreatitis Acute
[2017-03-23 05:04] VITALS: BP 111/69; PULSE 101; RESP 14; TEMP 99.3; O2SAT 93
[2017-03-23 06:01] LABS: ALANINE AMINOTRANSFERASE 35 IU/L (9-52); ALBUMIN 2.5 g/dL (3.5-5.0); ALKALINE PHOSPHATASE 95 IU/L (38-126); ANION GAP 4 mEq/L (8-16); ASPARTATE AMINOTRANSFERASE 58 IU/L (14-46); BILIRUBIN,TOTAL 2.4 mg/dL (0.1-1.4); CALCIUM 7.5 mg/dL (8.5-10.4); CARBON DIOXIDE 23 mEq/l (22-31); CHLORIDE 110 mEq/L (97-110); CREATININE 0.4 mg/dL (0.6-1.0); GLOMERULAR FILTRATION RATE > 60; GLUCOSE 89 mg/dL (70-100); POTASSIUM 3.7 mEq/L (3.5-5.2); SODIUM 137 mEq/L (134-144); TOTAL PROTEIN 4.9 g/dL (6.3-8.2)
[2017-03-23 06:13] LABS: BILIRUBIN-CONJUGATED 1.3 mg/dL (0.0-0.5); BILIRUBIN-UNCONJUGATED 1.1 mg/dL (0.0-1.1)
[2017-03-23] MEDS: HYDROmorphONE/DILAUDID 2 MG TAB PO PRN (08:35)
[2017-03-23] MEDS: ENOXAPARIN 40 MG/0.4 ML SYR SC SCH (08:35)
[2017-03-23] MEDS: chlordiazePOXIDE 25 MG CAP PO SCH (08:35)
[2017-03-23] MEDS: FAMOTIDINE 20 MG/NACL 50 ML IV SCH (08:36)
--- NOTE | 2017-03-23 09:06 | GDS ---
[f rep st] DISCHARGE SUMMARY DISCHARGE DIAGNOSES: 1. Acute alcoholic pancreatitis. 2. Alcohol withdrawal. 3. Alcoholic hepatitis. 4. Systemic inflammatory response syndrome .. HISTORY: This is a 37-year-old female, who presented with abdominal pain. HOSPITAL COURSE: The patient was admitted, and abdominal ultrasound did suggest that there might be a common bile duct stone. She underwent ERCP, which did not show any filling defects. She was kep t n.p.o. for several days, and then started on a diet. She tolerated her diet. She continued to be in alcohol withdrawal, requiring fairly large doses of Librium and Ativan. On day of discharge, jlilian frias is much less tremulous, and is very much wanting to go home. She will be discharged home on Libri um. DISPOSITION: Home. DISCHARGE MEDICATIONS: Librium 25 mg t.i.d. scheduled for a couple days, and then as needed. FOLLOWUP INSTRUCTIONS: She is instructed to follow up with her primary care doctor. TIME SPENT: Greater than 30 minutes was spent on discharge. /[id number]/MODL
[2017-03-25 16:17] LABS: FOLATE SERUM 9.71 ng/mL (2.80 - >20.00)
== END 2017-03-23 09:40 | disposition home or self-care (01) | DRG 439 ==
LOC: OBSVTOIN 19:28 → F2N 21:10 → F3E 03-20 14:36
PROVIDERS: ADMIT Hospitalist; ATTEND Hospitalist
PROC: 0F798ZZ Dilation of Common Bile Duct, Via Natural or Artificial Opening Endoscopic (ICD-10-PCS; principal; 2017-03-19 13:25)
DX: K85.20 Alcohol induced acute pancreatitis without necrosis or infection (principal); F10.239 Alcohol dependence with withdrawal, unspecified; R65.10 Systemic inflammatory response syndrome (SIRS) of non-infectious origin without acute organ dysfunction; K70.10 Alcoholic hepatitis without ascites
CPT/HCPCS: 82607-90; 96374; J0610; J1100; J1170; J1610; J1650; J2060; J2250; J2405; J2704; J3010; J3411; J3475; Q9961; Q9967

== ENCOUNTER 2017-03-25 13:44 | Inpatient (IN) | payer OTHER ==
--- NOTE | 2017-03-25 14:44 | EDPHY ---
H & P Stated Complaint: seen last week for pancreatits, sent back by dr bailey Time Seen by Provider: 03/25/17 14:44 Source: Patient - Personal History LMP (Females 10-55): 1-7 Days Ago Current Tetanus/Diphtheria Vaccine: Yes Current Tetanus Diphtheria and Acellular Pertussis (TDAP): Yes - Medical/Surgical History Hx Asthma: No Hx Chronic Respiratory Disease: No Hx Diabetes: No Hx Cardiac Disease: No Hx Renal Disease: No Hx Cirrhosis: No Hx Alcoholism: Yes Hx HIV/AIDS: No Hx Splenectomy or Spleen Trauma: No Other PMH: pmh: pancreatitis. psh: c-sections - Social History Smoking Status: Never smoked Constitutional: Initial Vital Signs Temperature (C) 36.9 C 03/25/17 14:06 Heart Rate 109 H 03/25/17 14:06 Respiratory Rate 16 03/25/17 14:06 Blood Pressure 95/78 L 03/25/17 14:06 O2 Sat (%) 94 03/25/17 14:06 O2 Delivery Mode Nasal Cannula O2 (L/minute) 2 Allergies/Adverse Reactions: latex [Latex] Allergy (Verified 03/18/17 17:19) Penicillins Allergy (Verified 03/18/17 17:19) Home Medications: Medication Instructions Recorded chlordiazePOXIDE [Librium 25 mg 25 mg PO Q4H PRN 03/25/17 (*)] Medical Decision Making - Diagnostics Imaging Results: Imaging Impressions Abdomen Ultrasound 03/25/17 16:33 Impression: 1. Hepatomegaly with hepatic steatosis versus hepatitis unchanged. 2. Gallbladder hydrops. No cholelithiasis. 3. Improved biliary dilation since 6 days prior. Equivocal residual sludge in the common bile duct. 4. Trace free fluid adjacent to gallbladder. Imaging: Discussed imaging studies w/ scallop dredger Radiologist ED Course/Re-evaluation: CHIEF COMPLAINT: Abdominal pain HISTORY OF PRESENT ILLNESS: The patient is a 37-year-old female admitted for alcoholic pancreatitis last week, discharged 2 days ago, who returns today with continued abdominal pain and intermittent vomiting. Her abdominal pain is diffuse and has remained constant. She is unable to tolerate food well. She has nausea with intermittent emesis as well as diarrhea. Patient was discharged with Librium. She denies fever. REVIEW OF SYSTEMS: A 10 point review of systems was performed and is negative with the exception of the elements mentioned in the history of present illness. PHYSICAL EXAM: HR, BP, O2 Sat, RR. Temp noted General Appearance: Alert, well hydrated, appropriate, and non-toxic appearing. Head: Atraumatic without scalp tenderness or obvious injury Eyes: Pupils equal, round, reactive to light and accommodation, EOMI, no trauma , no injection. Ears: Clear bilaterally, no perforation, normal landmarks Nose: Atraumatic, no rhinorrhea, clear. Throat: There is no erythema or exudates, no lesions, normal tonsils, mucus membranes moist. Neck: Supple, 2+ carotid upstroke, nontender, no lymphadenopathy. Respiratory: No retractions, no distress, no wheezes, and no accessory muscle use. Lungs are clear to auscultation bilaterally. Cardiovascular: Regular rate and rhythm, no murmurs, rubs, or gallops. Bilateral carotid, radial, dorsalis pedis, and posterior tibial pulses intact. Good capillary refill all extremities. Gastrointestinal: Abdomen is soft, obese. Musculoskeletal: Normal active ROM of all extremities, atraumatic. Neurological: Alert, appropriate, and interactive. The patient has normal DTRs and non-focal cranial nerves, motor, sensory, and cerebellar exam. Skin: No rashes, good turgor, no nodules on palpation. Past medical history: Alcoholic pancreatitis, Alcoholism, Alcohol hepatitis Past surgical history: Denies Family history: Father with alcoholism Social history: . DIAGNOSTICS/PROCEDURES/CRITICAL CARE TIME: US abdomen/pelvis was performed. I discussed results with the radiologist. Please see imaging section for full report. DIFFERENTIAL DIAGNOSIS: The differential diagnosis for the patient's abdominal pain included but was not limited to pancreatitis, ovarian cyst, pelvic inflammatory disease, ovarian torsion, urinary tract infection, ectopic , cholecystitis, and appendicitis. MEDICAL DECISION MAKING: Patient presents with persistent pancreatitis. She was admitted with alcohol induced pancreatis and discharged two days ago. She did not receive pain medication on discharge. Since being home patient has intermittent emesis. She is unable to tolerate POs due to nausea. She continues to have abdominal pain. IV was established, patient received Dilaudid and Toradol for pain. Plan to check lab work, including Lipase and LFTs. I reviewed patient's previous US from her admission last which which was abnormal. Patient US shows choledocholithiasis and pericholecystic fluid. ERCP is documented as negative for stones. Today patient has elevated WBC. Her lipase is down from 6600 to 479. Alkaline phosphatase is elevated today. I spoke Dr. Conrad 's PA. She will have Dr. Conrad assess the patient. 4:20 p.m.: Dr. Conrad requests a repeat abdominal US. 4:35 p.m.: I spoke to the hospitalist, the patient will be admitted to Dr. Lewis for further evaluation regarding choledocholithiasis and cholecystitis. 4:40 p.m.: I discussed findings with the patient. She agrees with plan for admission. - Data Points Laboratory Results: Laboratory Results 03/25/17 14:55 03/25/17 14:55 03/25/17 03/25/17 14:55 14:55 WBC 14.93 10^3/uL H 10^3/uL (3.80-9.50) RBC 3.21 10^6/uL L 10^6/uL (4.18-5.33) Hgb 12.0 g/dL L g/dL (12.6-16.3) Hct 35.8 % L % (38.0-47.0) MCV 111.5 fL H fL (81.5-99.8) MCH 37.4 pg H pg (27.9-34.1) MCHC 33.5 g/dL g/dL (32.4-36.7) RDW 13.0 % % (11.5-15.2) Plt Count 285 10^3/uL 10^3/uL (150-400) MPV 10.0 fL fL (8.7-11.7) Neut % (Auto) Not Reported Lymph % (Auto) Not Reported Garrard % (Auto) Not Reported Eos % (Auto) Not Reported Baso % (Auto) Not Reported Nucleat RBC Rel Count 0.3 % H % (0.0-0.2) Absolute Neuts (auto) Not Reported Absolute Lymphs (auto) Not Reported Absolute Monos (auto) Not Reported Absolute Eos (auto) Not Reported Absolute Basos (auto) Not Reported Absolute Nucleated RBC 0.05 10^3/uL H 10^3/uL (0-0.01) Immature Gran % Not Reported Seg Neutrophils % 62 % % Band Neutrophils % 10 % % Lymphocytes % 10 % % Monocytes % 16 % % Metamyelocytes % 2 % % Immature Gran # Not Reported Absolute Seg Neuts 9.26 10^/uL H 10^/uL (1.70-6.50) Absolute Band Neuts 1.49 10^3/uL H 10^3/uL (0.00-0.70) Absolute Lymphocytes 1.49 10^3/uL 10^3/uL (1.00-3.00) Absolute Monocytes 2.39 10^3/uL H 10^3/uL (0.30-0.80) Absolute Metamyelocyte 0.30 10^3/mL H 10^3/mL (0.00-0.00) Platelet Estimate ADEQUATE (ADEQ) Polychromasia 1+ H Oval Macrocytes 2+ H Smear Review By Kath BAHENA MD Sodium 140 mEq/L mEq/L (134-144) Potassium 3.7 mEq/L mEq/L (3.5-5.2) Chloride 104 mEq/L mEq/L (97-110) Carbon Dioxide 25 mEq/l mEq/l (22-31) Anion Gap 11 mEq/L mEq/L (8-16) BUN 5 mg/dL L mg/dL (7-23) Creatinine 0.5 mg/dL L mg/dL (0.6-1.0) Estimated GFR > 60 Glucose 80 mg/dL mg/dL (70-100) Calcium 8.7 mg/dL D mg/dL (8.5-10.4) Total Bilirubin 1.5 mg/dL H mg/dL (0.1-1.4) Conjugated Bilirubin 0.9 mg/dL H mg/dL (0.0-0.5) Unconjugated Bilirubin 0.6 mg/dL mg/dL (0.0-1.1) AST 61 IU/L H IU/L (14-46) ALT 41 IU/L IU/L (9-52) Alkaline Phosphatase 138 IU/L H IU/L (38-126) Total Protein 5.9 g/dL L D g/dL (6.3-8.2) Albumin 3.2 g/dL L g/dL (3.5-5.0) Lipase 479.0 IU/L H IU/L (23-300) Medications Given: Discontinued Medications Hydromorphone HCl (Dilaudid) 1 mg IVP EDNOW ONE Stop: 03/25/17 14:47 Last Admin: 03/25/17 15:05 Dose: 1 mg Sodium Chloride (Ns) 1,000 mls @ 0 mls/hr IV ONCE ONE PRN Reason: Wide Open Stop: 03/25/17 14:47 Last Admin: 03/25/17 15:05 Dose: 1,000 mls Ketorolac Tromethamine (Toradol) 30 mg IVP EDNOW ONE Stop: 03/25/17 14:47 Last Admin: 03/25/17 15:05 Dose: 30 mg Departure - Departure Disposition: [facility] Acute Clinical Impression: Cholecystitis, Choledocholithiasis Condition: Fair Report Scribed for: Toy Urrutia Report Scribed by: Elke Macias Date of Report: 03/25/17 Time of Report: 15:19
[2017-03-25] MEDS ORDERED: NS 1,000 ML IV ONE (14:46)
[2017-03-25] MEDS ORDERED: HYDROmorphONE/DILAUDID 1 MG/ML SYR IVP ONE (14:46)
[2017-03-25] MEDS ORDERED: KETOROLAC 30 MG/1 ML SDV IVP ONE (14:46)
[2017-03-25 15:12] LABS: ABSOLUTE NRBC COUNT 0.05 10^3/uL (0-0.01); ADD DIFF? YES; ADD MORPH? NO; ATYPICAL LYMPHOCYTE FLAG 0 (0-99); FRAGMENT RBC FLAG 0 (0-99); HEMATOCRIT 35.8 % (38.0-47.0); LIPEMIA HEMOLYSIS FLAG 80 (0-99); MEAN CELL HEMOGLOBIN 37.4 pg (27.9-34.1); MEAN CELL HEMOGLOBIN CONCENTR. 33.5 g/dL (32.4-36.7); MEAN CELL VOLUME 111.5 fL (81.5-99.8); NRBC-AUTO% 0.3 % (0.0-0.2); PLATELET CLUMPS FLAG 10 (0-99); PLATELET COUNT 285 10^3/uL (150-400); RED BLOOD CELL COUNT 3.21 10^6/uL (4.18-5.33)
[2017-03-25 15:27] LABS: ADD SCAN? NO; LEFT SHIFT FLG 210 (0-99)
[2017-03-25 15:37] LABS: ALANINE AMINOTRANSFERASE 41 IU/L (9-52); ALBUMIN 3.2 g/dL (3.5-5.0); ALKALINE PHOSPHATASE 138 IU/L (38-126); ANION GAP 11 mEq/L (8-16); ASPARTATE AMINOTRANSFERASE 61 IU/L (14-46); BILIRUBIN,TOTAL 1.5 mg/dL (0.1-1.4); BILIRUBIN-CONJUGATED 0.9 mg/dL (0.0-0.5); BILIRUBIN-UNCONJUGATED 0.6 mg/dL (0.0-1.1); CALCIUM 8.7 mg/dL (8.5-10.4); CARBON DIOXIDE 25 mEq/l (22-31); CHLORIDE 104 mEq/L (97-110); CREATININE 0.5 mg/dL (0.6-1.0); GLOMERULAR FILTRATION RATE > 60; GLUCOSE 80 mg/dL (70-100); POTASSIUM 3.7 mEq/L (3.5-5.2); SODIUM 140 mEq/L (134-144); TOTAL PROTEIN 5.9 g/dL (6.3-8.2)
[2017-03-25 15:58] LABS: POLYCHROMASIA 1+
[2017-03-25 16:00] LABS: MACROCYTES 2+; PLATELET ESTIMATE ADEQUATE (ADEQ)
[2017-03-25] MEDS ORDERED: ONDANSETRON DISINTEGRATING 4 MG TAB PO PRN (17:51)
[2017-03-25] MEDS ORDERED: LORazepam 2 MG/ML INJ IVP PRN (17:51)
[2017-03-25] MEDS ORDERED: ONDANSETRON 4 MG/2 ML VIAL IVP PRN (17:51)
[2017-03-25] MEDS ORDERED: NS 1,000 ML IV SCH (18:00)
[2017-03-25] MEDS ORDERED: chlordiazePOXIDE 25 MG CAP PO PRN (18:07)
--- NOTE | 2017-03-25 18:39 | GHP ---
[f rep st] HISTORY AND PHYSICAL DATE OF ADMISSION: 03/25/2017 The patient is a pleasant 37-year-old female who was recently admitted to the hospital and discharge d 2 days ago with presumed alcoholic pancreatitis. She returns today with ongoing abdominal pain in the right upper quadrant that is postprandial in nature. During her last hospitalization she had a CAT scan showing gallbladder distention without gallbladder wall thickening. She had a subsequent ultrasound which showed choledocholithiasis without a common bile duct, 24 mm of pericholecystic ful l fluid and gallbladder hydrops. Dr. Fishman subsequently performed an endoscopic retrograde cholang iopancreatogram which showed no evidence for choledocholithiasis, and he felt that the duct was dila margi but less so. Also noted was an atraumatic-looking ampulla. The patient's alcohol withdrawal re solved and her abdominal pain improved, and she was started on a diet and discharged on the S he has continued to have a little bit of postprandial pain but it has migrated to the right upper qu adrant. She has been taking Librium at home and she feels like her alcohol withdrawal has essential ly resolved. She has had no alcohol at home. She has no family history of cholelithiasis or cholec ystitis which is aware. She denies a previous pre-existing history of biliary colic type symptoms. She has not had fever, chills, or diarrhea. She has had some nausea but no vomiting since being di scharged home. REVIEW OF SYSTEMS: Complete 10-point review of systems conducted, negative except as noted in the H PI. PAST MEDICAL HISTORY: 1. Alcoholism. 2. Pancreatitis presumed to alcohol. 3. Elevated LFTs. ALLERGIES: Penicillins and latex. HOME MEDICATIONS: Librium. SOCIAL HISTORY: Alcohol as in HPI. No tobacco. No drugs. FAMILY HISTORY: Reviewed and unremarkable. Also see HPI. PHYSICAL EXAM: VITAL SIGNS: Temp 36.9, blood pressure 95/78, pulse 109 now 91 pulse, breathing 16 times a minute, 94% on room air. GENERAL: No acute distress. HEENT: Sclerae anicteric. Orophary nx clear. Mucous membranes are moist. NECK: Supple without lymphadenopathy or JVD. LUNGS: Clear to auscultation bilaterally. HEART: S1, S2. Not tachycardic. ABDOMEN: Soft, nontender. There is no rebound or guarding. It is distended. There is a presumed Hampton sign. There is no rebound or guarding. LOWER EXTREMITIES: Without edema. Calves are nontender. SKIN: Without rash. NEURO LOGIC: Nonfocal. LABORATORY DATA: Sodium 140, potassium 3.7, chloride 104, bicarb 25, BUN 5, creatinine 0.5, bilirub in is 1.5 with an unconjugated of 0.6 and a conjugated of 0.9. On the her bilirubin was 3.9, w ith conjugated of 2.1. Her AST is 61, ALT is 41, alkaline phosphatase has risen to 138 from 95. Li pase 479. White count 14.9, hematocrit 35, MCV is elevated at 111, platelets are 285 which is dayna l for her. Abdominal ultrasound is pending. I reviewed the images myself, was unable see ascites. I have disc ussed the case with Dr. Toy Urrutia. ASSESSMENT/PLAN: This is a 37-year-old female with recent admission for pancreatitis, presumed seco ndary to alcohol given her heavy alcohol use although it may in retrospect be secondary to the passa ge of a gallstone. There is mixed data. 1. Question cholecystitis. The patient has a repeat abdominal ultrasound being performed. She is going to be seen by Surgery on consultation. I will keep her n.p.o., and provide her with IV fluids . 2. Pancreatitis. Her lipase is still elevated although it is of uncertain significance. We will a llow her to eat if she is not getting surgery. 3. Alcoholism. We will continue her Librium when medications have been reconciled. The patient de la torre s been absent from alcohol, and she uses it as an opportunity for motivation to continue to no longe r drink alcohol. 4. Pharmacologic prophylaxis is indicated if staying in the hospital longer than 24 hours. We will await surgical plans before proceeding with VTE prophylaxis. 5. Pain. IV Dilaudid. DISPOSITION: Inpatient status. /[id number]/MODL
[2017-03-25] MEDS: HYDROmorphONE/DILAUDID 1 MG/ML SYR IVP PRN (21:48)
[2017-03-25 22:27] LABS: INR 1.22 (0.83-1.16); PROTIME(PATIENT) 15.4 SEC (12.0-15.0)
[2017-03-25 22:28] LABS: APTT 26.7 SEC (23.0-38.0)
[2017-03-26] MEDS: HYDROmorphONE/DILAUDID 1 MG/ML SYR IVP PRN ×3 (01:34→16:44)
[2017-03-26 06:09] LABS: ABSOLUTE NRBC COUNT 0.03 10^3/uL (0-0.01); ADD DIFF? YES; ADD MORPH? NO; ATYPICAL LYMPHOCYTE FLAG 0 (0-99); FRAGMENT RBC FLAG 0 (0-99); HEMATOCRIT 32.9 % (38.0-47.0); HEMOGLOBIN 11.1 g/dL (12.6-16.3); LIPEMIA HEMOLYSIS FLAG 80 (0-99); MEAN CELL HEMOGLOBIN 37.5 pg (27.9-34.1); MEAN CELL HEMOGLOBIN CONCENTR. 33.7 g/dL (32.4-36.7); MEAN CELL VOLUME 111.1 fL (81.5-99.8); MEAN PLATELET VOLUME 9.8 fL (8.7-11.7); NRBC-AUTO% 0.2 % (0.0-0.2); PLATELET CLUMPS FLAG 0 (0-99); PLATELET COUNT 313 10^3/uL (150-400); RED BLOOD CELL COUNT 2.96 10^6/uL (4.18-5.33); RED CELL DISTRIBUTION WIDTH 13.2 % (11.5-15.2)
[2017-03-26] MEDS ORDERED: BUPIVACAINE 0.5% 30 ML SDV ONE (06:17)
[2017-03-26 06:24] LABS: ADD SCAN? NO; LEFT SHIFT FLG 300 (0-99)
[2017-03-26 06:47] LABS: HYPOCHROMIA 1+; MACROCYTES 1+; PLATELET ESTIMATE ADEQUATE (ADEQ); POLYCHROMASIA 2+
--- NOTE | 2017-03-26 07:15 | GCON ---
[f rep st] CONSULTATION DATE OF CONSULTATION: 03/25/2017 REFERRING PHYSICIAN: Colt Lewis MD REASON FOR CONSULTATION: Enlarged gallbladder. HISTORY OF PRESENT ILLNESS: Abdias Nazario is a 37-year-old woman who was recently admitted to the hospital on March 18, 2017, with choledocholithiasis and ERCP was performed but no stones were actuall y found. There was discongruency between imaging and the findings that Dr. Fishman had on the ERCP. She was discharged home with presumed alcoholic pancreatitis. She returns to the hospital today du e to continued symptoms. Her abdominal pain is worsening. It is tender in the right upper quadrant . It does not radiate. Nothing has made it better or worse. She has some nausea but no vomiting. PAST MEDICAL HISTORY: Alcoholism, pancreatitis. MEDICATIONS: Librium. ALLERGIES: Penicillin and latex. SOCIAL HISTORY: She denies tobacco or drug use. She recently quit alcohol use. FAMILY HISTORY: Unremarkable. REVIEW OF SYSTEMS: A 10-point review of systems negative except per HPI. PHYSICAL EXAM: VITAL SIGNS: 37., 104, 129/81, 17, 97% room air. GENERAL: A pleasant, obese woman , BMI 31.9, lying in bed. Appears comfortable. HEENT: Normocephalic. No gross hearing deficits. Mucous membranes moist. Pupils equal and round. No scleral icterus. LUNGS: Clear to auscultatio n bilaterally. No increased work of breathing. CARDIAC: Tachycardiac. No peripheral edema. ABDO MEN: She is soft. She has no abdominal incisions. I do palpate her gallbladder in the right upper quadrant. MUSCULOSKELETAL: Moves all extremities. SKIN: Warm and dry. PSYCH: Mood and affect normal. NEURO: Grossly intact. Results reviewed. LABORATORY WORK: Reveals a white count of 14.93, hemoglobin/hematocrit of 12 and 35 and platelets o f 285. Her INR is 1.2, and her chemistry panel is normal. Her total bilirubin is 1.5 with a conjug ated bilirubin 0.9. Her lipase is 479, which has decreased from where it was previously. She had a repeat abdominal ultrasound, which showed gallbladder hydrops without cholecystitis. There is impr nohelia biliary dilatation since 6 days prior. IMPRESSION AND PLAN: Abdias Nazario is a 37-year-old with gallbladder hydrops with her 2nd admissio n for pain. I will take her to the operating room for laparoscopic cholecystectomy. The risks and benefits, including, but not limited to, stroke, heart attack, , blood clots, infection, bleedi ng, damage to the surrounding structures such as the common bile duct were discussed. She had her q uestions answered to her satisfaction. She will be n.p.o. at midnight. /[id number]/MODL
[2017-03-26 07:50] LABS: ALANINE AMINOTRANSFERASE 31 IU/L (9-52); ALBUMIN 2.8 g/dL (3.5-5.0); ALKALINE PHOSPHATASE 134 IU/L (38-126); ANION GAP 11 mEq/L (8-16); ASPARTATE AMINOTRANSFERASE 49 IU/L (14-46); BILIRUBIN,TOTAL 1.3 mg/dL (0.1-1.4); CARBON DIOXIDE 24 mEq/l (22-31); CHLORIDE 102 mEq/L (97-110); CREATININE 0.5 mg/dL (0.6-1.0); GLOMERULAR FILTRATION RATE > 60; GLUCOSE 69 mg/dL (70-100); POTASSIUM 3.5 mEq/L (3.5-5.2); SODIUM 137 mEq/L (134-144); TOTAL PROTEIN 5.2 g/dL (6.3-8.2)
[2017-03-26] MEDS ORDERED: ceFAZolin 2 GM/DEXTROSE 100 ML IV ONE (08:00)
[2017-03-26] MEDS ORDERED: MIDAZOLAM 2 MG/2 ML VIAL ONE (08:04)
[2017-03-26] MEDS ORDERED: fentaNYL 100 MCG/2 ML INJ ONE ×3 (08:08→10:41)
[2017-03-26] MEDS ORDERED: PROPOFOL 200 MG/20 ML VIAL ONE (08:09)
[2017-03-26] MEDS ORDERED: ROCURONIUM 50 MG/5 ML VIAL ONE (08:26)
[2017-03-26] MEDS ORDERED: METOCLOPRAMIDE 10 MG/2 ML VIAL ONE (08:26)
[2017-03-26] MEDS ORDERED: SUGAMMADEX SODIUM 200 MG/2 ML VIAL IVP ONE (09:24)
--- NOTE | 2017-03-26 09:29 | POSTOPPROG ---
Post Op Note Date of Operation: 03/26/17 Surgeon: Ban Conrad Rodent Control Worker: fan Anesthesiologist: arpit Anesthesia: GET(General Endotracheal) Pre-op Diagnosis: hydrops Post-op Diagnosis: same Indication: 37 yo with sludge, hydrops and dilated cbd and pain Procedure: lap jennifer Findings: inflamed omentum around gb Inf/Abcess present in the surg proc area at time of surgery?: Yes Depth: Organ Space EBL: Minimal Specimen(s): gallbladder
--- NOTE | 2017-03-26 11:11 | GOP ---
[f rep st] OPERATIVE REPORT DATE OF OPERATION: 03/26/2017 SURGEON: Ban Conrad MD SUPERVISOR ORNAMENTAL IRONWORKING: ALLYSON Cassidy ANESTHESIA: General. ANESTHESIOLOGIST: Artemio Luong MD PREOPERATIVE DIAGNOSIS: Hydrops of the gallbladder. POSTOPERATIVE DIAGNOSIS: Hydrops of the gallbladder. PROCEDURE PERFORMED: Laparoscopic cholecystectomy. FINDINGS: Tense, friable gallbladder. SPECIMENS: Gallbladder. ESTIMATED BLOOD LOSS: 50 cc. INDICATIONS: The patient is a 37-year-old woman who was previously admitted for choledocholithiasis. An ERCP was performed, but no stones were identified. She returns to the hospital with abdominal pain. Her ultrasound was consistent with hydrops. Due to her right upper quadrant pain, I took her to the operating room. DESCRIPTION OF PROCEDURE: The patient was brought into the operating room, placed supine on the table, and general anesthesia was administered. Her abdomen was prepped and draped in the usual sterile fashion. I infiltrated all sites with 0.5% Marcaine prior to making incisions. I made an incision at her umbilicus. I inserted the Veress needle. It passed the hanging drop test. Her abdomen insufflated easily to a pressure of 15 mmHg. I placed a 5 mm trocar with the camera at this site. There were no injuries from Veress needle placement. Under direct vision, I placed a 10 mm subxiphoid trocar and two 5 mm trocars along the right costal margin. Upon grasping her gallbladder cephalad, there was an immediate breach into the gallbladder wall and spillage of bile. I used suction irrigation to decompress the gallbladder. I then could lift it laterally to expose the triangle of Calot. There was a lot of fat that appeared somewhat necrotic by the triangle of Calot. I carefully skeletonized the cystic artery and the cystic duct so that they were the only 2 structures directly entering the gallbladder. I singly clipped the cystic duct toward the gallbladder and doubly clipped it distally, divided it with scissors. The clips were barely coming around the cystic duct, and so I placed an 0 PDS Endoloop to ensure closure of the duct. I singly clipped the cystic artery towards the gallbladder and doubly clipped it distally, and transected it with scissors. I removed the gallbladder from the gallbladder fossa with electrocautery. I placed the gallbladder in an EndoCatch bag and retrieved it via the 10 mm trocar. Hemostasis was achieved on the liver bed with electrocautery. Suction irrigation was performed. The clips and the Endoloop were in satisfactory position. The fascia at the 10 mm trocar site was closed with 0 Vicryl. Skin closed with 4-0 Monocryl, Dermabond applied. She was awakened in the operating room, extubated, transferred to PACU in stable condition. /[id number]/MODL MTDD
[2017-03-26] MEDS: KETOROLAC 15 MG/1 ML SDV IVP SCH ×3 (12:31→23:36)
--- NOTE | 2017-03-26 16:58 | HOSPPROG ---
Hospitalist Progress Note Assessment/Plan: 37-year-old admitted because of right upper quadrant abdominal pain and found to have acute cholecystitis. Patient is new to me today. At my examination the patient is postop a laparoscopic cholecystectomy without complications. - Acute cholelithiasis and status post cholecystectomy. Patient is currently doing well. She is moving some gas below and taken some sips of water. Pain is currently well controlled - acute pancreatitis with an elevated lipase on admission. The elevated lipase is of uncertain etiology as she had acute pancreatitis approximately a week ago presume secondary to alcohol consumption. The lipase may simply be declining or may be a part of this acute illness. Will follow the lipase in her clinical course. She currently appears to be doing well and has decreased pain post cholecystectomy. - Alcohol withdrawal syndrome: Patient has had no alcohol for over the last week and she is on Librium. She appears to be doing well. Will continue the Librium. Plan: Manage her pain control continue the use of Librium, and advance the diet as tolerated per surgery recommendations. Disposition: 1-2 days. I discussed the findings with the father and . Time 20 minutes. Time overall for examination and family discussion was 50 minutes. Subjective: Patient reports she is feeling improved but continues to have some pain. She has no nausea or vomiting and denies fever cough. She has taken some sips of water and has moved some gas below Objective: Vital Signs Temp Pulse Resp BP Pulse Ox 37.3 C 88 16 109/74 97 03/26/17 16:14 03/26/17 16:14 03/26/17 16:14 03/26/17 16:14 03/26/17 16:14 Laboratory Results 03/26/17 05:15 03/26/17 05:15 03/25/17 03/26/17 03/27/17 05:59 05:59 05:59 Intake Total 1000 2100 Output Total 850 Balance 1000 1250 PT 15.4 SEC (12.0-15.0) H 03/25/17 21:50 INR 1.22 (0.83-1.16) H 03/25/17 21:50 - Time Spent With Patient Time Spent with Patient: greater than 35 minutes Time Spent with Patient: Greater than 35 minutes spent on this patients care, greater than 50% of time spent counseling, educating, and coordinating care regarding the above mentioned plan. - Pending Discharge Pending Discharge Within 24 Hours: No Pending Discharge Within 48 Hours: Yes Pending Discharge Date: 03/28/17 Pending Discharge Time: 11:00 - Physical Exam Constitutional: no apparent distress Eyes: PERRL, anicteric sclera Ears, Nose, Mouth, Throat: moist mucous membranes Cardiovascular: regular rate and rhythym, no murmur, rub, or gallop Respiratory: no respiratory distress, no rales or rhonchi Gastrointestinal: other ( post laparoscopic cholecystectomy scars healing well. There is bowel sounds present with tenderness slightly overall in the abdomen without a specific area of increased tenderness or any rebound. Bowel sounds are hypoactive but present) Skin: warm Neurologic: AAOx3, CN II-XII Intact, other ( drowsy postoperatively) ICD10 Worksheet Patient Problems: Problems Problem Status Onset Pancreatitis Acute Cholecystitis Acute Choledocholithiasis Acute
[2017-03-26] MEDS: HYDROCODONE/APAP 5/325 TAB PO PRN (22:23)
[2017-03-27] MEDS: KETOROLAC 15 MG/1 ML SDV IVP SCH ×3 (05:29→18:51)
[2017-03-27 05:54] LABS: ADD DIFF? YES; ADD MORPH? NO; ATYPICAL LYMPHOCYTE FLAG 0 (0-99); FRAGMENT RBC FLAG 0 (0-99); HEMATOCRIT 33.4 % (38.0-47.0); HEMOGLOBIN 11.1 g/dL (12.6-16.3); LIPEMIA HEMOLYSIS FLAG 80 (0-99); MEAN CELL HEMOGLOBIN 37.1 pg (27.9-34.1); MEAN CELL HEMOGLOBIN CONCENTR. 33.2 g/dL (32.4-36.7); MEAN CELL VOLUME 111.7 fL (81.5-99.8); MEAN PLATELET VOLUME 9.6 fL (8.7-11.7); PLATELET CLUMPS FLAG 0 (0-99); PLATELET COUNT 354 10^3/uL (150-400); RED BLOOD CELL COUNT 2.99 10^6/uL (4.18-5.33)
[2017-03-27 05:57] LABS: ADD SCAN? NO; LEFT SHIFT FLG 270 (0-99)
[2017-03-27 06:18] LABS: ALANINE AMINOTRANSFERASE 34 IU/L (9-52); ALBUMIN 2.4 g/dL (3.5-5.0); ALKALINE PHOSPHATASE 102 IU/L (38-126); ANION GAP 9 mEq/L (8-16); ASPARTATE AMINOTRANSFERASE 59 IU/L (14-46); BILIRUBIN,TOTAL 1.4 mg/dL (0.1-1.4); CALCIUM 7.9 mg/dL (8.5-10.4); CARBON DIOXIDE 27 mEq/l (22-31); CHLORIDE 102 mEq/L (97-110); CREATININE 0.5 mg/dL (0.6-1.0); GLOMERULAR FILTRATION RATE > 60; GLUCOSE 88 mg/dL (70-100); POTASSIUM 3.5 mEq/L (3.5-5.2); SODIUM 138 mEq/L (134-144)
[2017-03-27 06:54] LABS: PLATELET ESTIMATE ADEQUATE (ADEQ)
[2017-03-27 06:55] LABS: POLYCHROMASIA 2+; STOMATOCYTES 1+
[2017-03-27] MEDS: HYDROCODONE/APAP 5/325 TAB PO PRN ×2 (08:26→12:57)
--- NOTE | 2017-03-27 11:51 | SOAPPROG ---
SOAP Progress Note Assessment/Plan: Assessment: POD # 1 s/p lap jennifer for hydrops Improved today Some abdominal pain WBC elevated Levaquin X 5 days Home today or tomorrow S: feeling improved, no nausea, tolerated diet Incisions cdi Soft, minimally tender BS present Plan: 03/27/17 11:49 Objective: Vital Signs Temp Pulse Resp BP Pulse Ox 36.7 C 95 16 103/62 91 L 03/27/17 11:28 03/27/17 11:28 03/27/17 11:28 03/27/17 11:28 03/27/17 11:28 Laboratory Results 03/27/17 05:17 03/27/17 05:17 03/26/17 03/27/17 03/28/17 05:59 05:59 05:59 Intake Total 1000 2900 Output Total 1250 Balance 1000 1650 PT 15.4 SEC (12.0-15.0) H 03/25/17 21:50 INR 1.22 (0.83-1.16) H 03/25/17 21:50 ICD10 Worksheet Patient Problems: Problems Problem Status Onset Cholecystitis Acute Choledocholithiasis Acute Pancreatitis Acute
--- NOTE | 2017-03-27 13:24 | HOSPPROG ---
Hospitalist Progress Note Assessment/Plan: 37-year-old admitted because of right upper quadrant abdominal pain and found to have acute cholecystitis. Patient is new to me today. At my examination the patient is postop a laparoscopic cholecystectomy without complications. Chart reviewed. - Acute cholelithiasis and status post cholecystectomy. POD#1 Patient is currently doing well. Had a BM. Tolerating food. Pain is currently well controlled - acute pancreatitis with an elevated lipase on admission. The elevated lipase is of uncertain etiology as she had acute pancreatitis approximately a week ago presume secondary to alcohol consumption. The lipase may simply be declining or may be a part of this acute illness. She currently appears to be doing well and has decreased pain post cholecystectomy. - Alcohol withdrawal syndrome: Patient has had no alcohol for over the last week. She appears to be doing well. Will DC the Librium. -Leukocytosis: start levaquin, recheck in am -Tachycardia: Follow, multifactorial -Plan: Manage her pain control.Follow labs. -Disposition: in am if improved Subjective: Feels tired. No pain currenty. Ate this am. Objective: Vital Signs Temp Pulse Resp BP Pulse Ox 36.7 C 95 16 103/62 91 L 03/27/17 11:28 03/27/17 11:28 03/27/17 11:28 03/27/17 11:28 03/27/17 11:28 Laboratory Results 03/27/17 05:17 03/27/17 05:17 03/26/17 03/27/17 03/28/17 05:59 05:59 05:59 Intake Total 1000 2900 Output Total 1250 Balance 1000 1650 PT 15.4 SEC (12.0-15.0) H 03/25/17 21:50 INR 1.22 (0.83-1.16) H 03/25/17 21:50 - Physical Exam Constitutional: appears nourished, not in pain, obese Eyes: PERRL, anicteric sclera, EOMI Ears, Nose, Mouth, Throat: moist mucous membranes, hearing normal, ears appear normal Cardiovascular: tachycardia, No JVD, No edema Respiratory: no respiratory distress, no rales or rhonchi, reduced air movement Gastrointestinal: tenderness, No ascites, No guarding Skin: warm, normal color, No erythema Musculoskeletal: normal joint ROM, no joint effusions, generalized weakness Neurologic: AAOx3 Psychiatric: interacting appropriately, not anxious, not encephalopathic ICD10 Worksheet Patient Problems: Problems Problem Status Onset Pancreatitis Acute Cholecystitis Acute Choledocholithiasis Acute
[2017-03-27] MEDS: IBUPROFEN 600 MG TAB PO SCH (18:50)
[2017-03-28] MEDS: HYDROCODONE/APAP 5/325 TAB PO PRN (00:47)
[2017-03-28] MEDS: IBUPROFEN 600 MG TAB PO SCH ×2 (03:04→10:31)
[2017-03-28 05:07] LABS: ADD DIFF? YES; ADD MORPH? NO; ATYPICAL LYMPHOCYTE FLAG 0 (0-99); FRAGMENT RBC FLAG 0 (0-99); HEMATOCRIT 33.7 % (38.0-47.0); HEMOGLOBIN 11.1 g/dL (12.6-16.3); LEFT SHIFT FLG 150 (0-99); LIPEMIA HEMOLYSIS FLAG 80 (0-99); MEAN CELL HEMOGLOBIN 36.8 pg (27.9-34.1); MEAN CELL HEMOGLOBIN CONCENTR. 32.9 g/dL (32.4-36.7); MEAN CELL VOLUME 111.6 fL (81.5-99.8); MEAN PLATELET VOLUME 9.6 fL (8.7-11.7); PLATELET CLUMPS FLAG 30 (0-99); PLATELET COUNT 383 10^3/uL (150-400); RED BLOOD CELL COUNT 3.02 10^6/uL (4.18-5.33)
[2017-03-28 05:08] LABS: ADD SCAN? NO
[2017-03-28 05:25] LABS: ALANINE AMINOTRANSFERASE 32 IU/L (9-52); ALBUMIN 2.5 g/dL (3.5-5.0); ALKALINE PHOSPHATASE 102 IU/L (38-126); ANION GAP 9 mEq/L (8-16); ASPARTATE AMINOTRANSFERASE 49 IU/L (14-46); BILIRUBIN,TOTAL 1.4 mg/dL (0.1-1.4); CALCIUM 8.3 mg/dL (8.5-10.4); CARBON DIOXIDE 27 mEq/l (22-31); CHLORIDE 105 mEq/L (97-110); CREATININE 0.5 mg/dL (0.6-1.0); GLOMERULAR FILTRATION RATE > 60; GLUCOSE 102 mg/dL (70-100); POTASSIUM 3.2 mEq/L (3.5-5.2); SODIUM 141 mEq/L (134-144); TOTAL PROTEIN 5.1 g/dL (6.3-8.2)
[2017-03-28 06:15] LABS: PLATELET ESTIMATE ADEQUATE (ADEQ); POLYCHROMASIA 1+; STOMATOCYTES 1+
[2017-03-28 07:58] VITALS: BP 101/65; PULSE 80; RESP 18; TEMP 97.8; O2SAT 94
--- NOTE | 2017-03-28 08:17 | SOAPPROG ---
SOAP Progress Note Assessment/Plan: Assessment: POD #2 s/p lap jennifer for hydrops Improved today Ambulating independently WBC elevated Levaquin X 5 days Home today. F/u 1-[address] Conrad S: feeling much better today, no nausea or vomiting, passing flatus, tolerating diet Incisions cdi Soft, minimally tender BS present Objective: Vital Signs Temp Pulse Resp BP Pulse Ox 36.6 C 80 18 101/65 94 03/28/17 07:55 03/28/17 07:55 03/28/17 07:55 03/28/17 07:55 03/28/17 07:55 Laboratory Results 03/28/17 04:50 03/28/17 04:50 03/27/17 03/28/17 03/29/17 05:59 05:59 05:59 Intake Total 2900 2000 Output Total 1250 600 Balance 1650 1400 PT 15.4 SEC (12.0-15.0) H 03/25/17 21:50 INR 1.22 (0.83-1.16) H 03/25/17 21:50 ICD10 Worksheet Patient Problems: Problems Problem Status Onset Cholecystitis Acute Choledocholithiasis Acute Pancreatitis Acute
--- NOTE | 2017-03-28 11:36 | GDS ---
[f rep st] DISCHARGE SUMMARY DISCHARGE DIAGNOSES: 1. Acute cholecystitis. 2. History of alcoholic-induced pancreatitis. 3. Leukocytosis. 4. Tachycardia. CONSULTATIONS: Dr. Conrad of surgery. STUDIES AND PROCEDURES: 1. Abdominal ultrasound. 2. Laparoscopic cholecystectomy. PHYSICAL EXAM: GENERAL: The patient is alert. VITAL SIGNS: Afebrile at 36.6. Pulse is 80. Resp iratory rate is 18. Blood pressure is 101/65. She is saturating 94% on room air. I have seen and evaluated the patient on the day of discharge. HOSPITAL COURSE: The patient is a 37-year-old female who presented to the emergency room with compl aints of right upper quadrant pain. She was evaluated and diagnosed with: 1. Acute cholelithiasis. During this hospitalization, she had a laparoscopic cholecystectomy perfo rmed. She is tolerating this. She is eating and has been having bowel movements since her surgical intervention. She will follow up with Dr. Conrad in the outpatient setting. 2. Acute pancreatitis. The patient has a longstanding history of alcohol abuse and pancreatitis. She has received education and further outpatient recommendations have been made. 3. Alcohol withdrawal. This has resolved. She has no further symptoms of withdrawal. 4. Leukocytosis. She has been initiated on Levaquin. I have provided her a prescription for Levaq uin 750 mg daily, #3. Again, she will follow up in the outpatient setting for further laboratory ev aluation. 5. Tachycardia. This has resolved. DISPOSITION: The patient will be discharged home independently. There are no pending studies. DISCHARGE MEDICATIONS: Please refer to EMR form. I have provided the patient a prescription for Le vaquin 750 mg daily, #3, as well as [place] , #10. FOLLOWUP: Will be with the patient's primary care physician, Dr. Inez Franklin, as well as Jessica Hamm in Dr. Conrad's office. I spent greater than 35 minutes in the care, coordination, and management of this patient's disposit ion. /[id number]/MODL
== END 2017-03-28 11:22 | disposition home or self-care (01) | DRG 417 ==
LOC: F3E 20:37
PROVIDERS: ADMIT Internal Medicine; ATTEND Internal Medicine
PROC: 0FT44ZZ Resection of Gallbladder, Percutaneous Endoscopic Approach (ICD-10-PCS; principal; 2017-03-26 08:00)
DX: K81.0 Acute cholecystitis (principal); K82.1 Hydrops of gallbladder; K85.90 Acute pancreatitis without necrosis or infection, unspecified; R00.0 Tachycardia, unspecified; F10.10 Alcohol abuse, uncomplicated
CPT/HCPCS: 96374; J0690; J1170; J1885; J2250; J2704; J2765; J3010

== ENCOUNTER → 2018-07-01 | Outpatient (CLI) | payer OTHER | LOC: FIMAGING 16:39 | PROVIDERS: ATTEND Family Medicine | DX: D25.1 Intramural leiomyoma of uterus (principal); N88.8 Other specified noninflammatory disorders of cervix uteri; Z98.891 History of uterine scar from previous surgery ==